=== PATIENT | female | born 1975 | race African-American/Black ===

== ENCOUNTER 2018-04-21 11:18 | Emergency (ER) | payer MEDICAID ==
[~2018-04-21] VITALS: Wt 109.6 kg
[2018-04-21] MEDS ORDERED: hydrALAzine 20 MG INJ IV ONE (12:30)
[2018-04-21] MEDS ORDERED: AMLO-147 PO (12:39)
[2018-04-21] MEDS ORDERED: LISI10TA2 PO (12:39)
[2018-04-21] MEDS ORDERED: POTASSIUM CHLORIDE (SR) 20 MEQ TAB PO STA (12:52)
[2018-04-21] MEDS ORDERED: METOCLOPRAMIDE 10 MG INJ IV ONE (13:30)
[2018-04-21] MEDS ORDERED: DIPHENHYDRAMINE 50 MG INJ IV ONE (13:30)
--- NOTE | 2018-04-21 13:52 | ERD ---
ER Documentation Chief Complaint Chief Complaint dizzy, blurred vision, head pressure HPI This is a 42-year-old female with a history of hypertension who presents to the emergency room for evaluation of a headache. Patient states that her blood pressure is normally L1 80 systolic however she noted it was over 200 and she took her medications without relief. The patient is on lisinopril and on amlodipine. She states that she is having a headache which she describes as an aching sensation however she denies any numbness or tingling in her body. She came to the ER for evaluation of her symptoms. ROS All systems reviewed and are negative except as per history of present illness. Medications Home Meds Reported Medications Amlodipine Besylate* (Amlodipine Besylate*) 10 Mg Tablet, 10 MG PO DAILY, #30 TAB 04/21/18 Lisinopril* (Lisinopril*) 10 Mg Tablet, 10 MG PO DAILY, #30 TAB 04/21/18 Allergies Allergies: Coded Allergies: No Known Allergy (Unverified , 04/21/18) PMhx/Soc Medical and Surgical Hx: pt denies Surgical Hx History of Surgery: No Hx Neurological Disorder: No Hx Respiratory Disorders: No Hx Cardiac Disorders: Yes (HTN) Hx Psychiatric Problems: No Hx Miscellaneous Medical Probl: No Hx Alcohol Use: No Hx Substance Use: No Hx Tobacco Use: No Smoking Status: Never smoker Physical Exam Vitals Vital Signs Date Temp Pulse Resp B/P (MAP) Pulse Ox O2 O2 Flow FiO2 Time Delivery Rate 04/21/18 92 20 168/98 98 Room Air 13:06 (121) 04/21/18 98.6 84 20 231/113 98 11:39 (152) Physical Exam INITIAL VITAL SIGNS: Reviewed by me GENERAL: The patient is well developed and appropriate for usual state of health in no apparent distress HEENT: Pupils equal, round, and reactive to light. EOMI. There is no scleral icterus. NECK: C-spine is soft and supple, there is no meningismus. There is no cervical lymphadenopathy. LUNGS: Clear to auscultation bilaterally. There are no rales, wheezes or rhonchi. HEART: Regular rate and rhythm, no murmurs, clicks, rubs or gallops. ABDOMEN: Soft, non-tender, non-distended. There are bowel sounds in all four quadrants. No rebound or guarding. EXTREMITIES: There is no peripheral cyanosis or edema. No focal swelling or erythema. NEUROLOGICAL: The patient moves all four extremities with 5/5 strength. Cranial nerves II - XII are intact. Normal gait. Alert and oriented SKIN: There is no apparent rash or petechiae. HEME/LYMPHATIC: There is no evidence of excessive bruising or lymphedema. PSYCHIATRIC: The patient does not appear anxious or depressed. Result Diagram: 04/21/18 1218 04/21/18 1218 Results 24 hrs Laboratory Tests Test 04/21/18 12:18 White Blood Count 8.9 10^3/ul Red Blood Count 5.75 10^6/ul Hemoglobin 13.7 g/dl Hematocrit 44.0 % Mean Corpuscular Volume 76.5 fl Mean Corpuscular Hemoglobin 23.8 pg Mean Corpuscular Hemoglobin Concent 31.1 g/dl Red Cell Distribution Width 15.1 % Platelet Count 195 10^3/UL Mean Platelet Volume 11.4 fl Immature Granulocytes % 0.500 % Neutrophils % 70.2 % Lymphocytes % 20.3 % Monocytes % 7.1 % Eosinophils % 1.4 % Basophils % 0.5 % Nucleated Red Blood Cells % 0.0 /100WBC Immature Granulocytes # 0.040 10^3/ul Neutrophils # 6.2 10^3/ul Lymphocytes # 1.8 10^3/ul Monocytes # 0.6 10^3/ul Eosinophils # 0.1 10^3/ul Basophils # 0.0 10^3/ul Nucleated Red Blood Cells # 0.0 10^3/ul Prothrombin Time 12.0 Sec Prothrombin Time Ratio 0.9 INR International Normalized Ratio 0.88 Activated Partial Thromboplast Time 27.1 Sec Sodium Level 142 mmol/L Potassium Level 2.9 mmol/L Chloride Level 101 mmol/L Carbon Dioxide Level 33 mmol/L Anion Gap 8 Blood Urea Nitrogen 19 mg/dl Creatinine 1.20 mg/dl Est Glomerular Filtrat Rate mL/min 49 mL/min Glucose Level 130 mg/dl Calcium Level 9.6 mg/dl Current Medications Medications Dose Sig/Maya Start Time Status Last (Trade) Ordered Route PRN Stop Time Admin Dose Reason Admin Hydralazine 10 mg ONCE ONCE 04/21/18 DC 04/21/18 HCl IV 12:30 12:26 (Apresoline) 04/21/18 12:31 Potassium 60 meq ONCE STAT 04/21/18 DC 04/21/18 Chloride PO 12:52 13:01 (Klor-Con 20) 04/21/18 12:58 10 mg ONCE ONCE 04/21/18 DC 04/21/18 Metoclopramid IV 13:30 13:19 e HCl 04/21/18 13:31 (Reglan) 25 mg ONCE ONCE 04/21/18 DC 04/21/18 Diphenhydrami IV 13:30 13:19 ne HCl 04/21/18 13:31 (Benadryl) Procedures/MDM CT brain without: No acute process This 42-year-old female presents to the emergency room for evaluation of a headache. On my exam the patient is alert and oriented to person place and time with no focal neurological deficits. The patient systolic blood pressure was greater than 200 and she normally runs around 180. The patient was given 10 mg of hydralazine, 10 mg of Reglan, 25 [address] Her CT the brain is normal. Lab work does demonstrate a potassium of 2.9. She was given 60 mg once of potassium by mouth. On my reevaluation the patient's blood pressure is 163/93. She is alert and oriented to person place and time. She is in no acute distress states she is feeling much better. Patient will be discharged at this time with strict return precautions. Patient presents with a headache consistent with previous migraine headaches. Considered in the differential diagnosis includes SAH, meningitis, and intracranial concerns. However, the patient's presentation is not consistent with these more significant concerns. After symptomatic management, the patient is much improved, neurologically normal, and appropriate for outpatient management. Departure Diagnosis: Primary Impression: Hypokalemia Additional Impressions: Dizziness Hypertension Condition: Stable Patient Instructions: Hypokalemia, Hypertension, Established, Out Of Control Referrals: COMM[facility]ITY CLIN[facility] YOU HAVE RECEIVED A MEDICAL SCREENING EXAM AND THE RESULTS INDICATE THAT YOU DO NOT HAVE A CONDITION THAT REQUIRES URGENT TREATMENT IN THE EMERGENCY DEPARTMENT. FURTHER EVALUATION AND TREATMENT OF YOUR CONDITION CAN WAIT UNTIL YOU ARE SEEN IN YOUR DOCTORS OFFICE WITHIN THE NEXT 1-2 DAYS. IT IS YOUR RESPONSIBILITY TO MAKE AN APPOINTMENT FOR FOLOW-UP CARE. IF YOU HAVE A PRIMARY DOCTOR --you should call your primary doctor and schedule an appointment IF YOU DO NOT HAVE A PRIMARY DOCTOR YOU CAN CALL OUR PHYSICIAN REFERRAL HOTLINE AT IF YOU CAN NOT AFFORD TO SEE A PHYSICIAN YOU CAN CHOSE FROM THE FOLLOWING [facility] CLINICS [facility] [address] [facility] [address] [facility] [address] [facility] [address] [facility]. [facility] [address] [facility]. [facility] [address] Additional Instructions: Call your primary care doctor TOMORROW for an appointment during the next 1-2 da ys.See the doctor sooner or return here if your condition worsens before your appointment time. ANABEL RICHARD DO Apr 21, 2018 13:52
[2018-04-21 14:16] VITALS: BP 163/92; PULSE 74; RESP 20
== END 2018-04-21 16:08 | disposition home or self-care (01) ==
LOC: E/R 11:18
DX: E87.6 Hypokalemia (principal); I10 Essential (primary) hypertension
CPT/HCPCS: 36415; 70450; 80048; 85025; 85610; 85730; 96374; 96375; J0360; J1200; J2765; Z7502; Z7610